=== PATIENT | male | born 1990 | race Caucasian/White ===

== ENCOUNTER 2023-04-01 21:06 | Emergency (ER) | payer MEDICAID ==
[~2023-04-01] VITALS: Ht 154.9 cm; Wt 67.1 kg
[2023-04-01] MEDS ORDERED: KETOROLAC TROMETHAMINE 15 MG/ML VIAL ONE (21:46)
[2023-04-01] MEDS ORDERED: KETO10TA2 PO (21:53)
[2023-04-01] MEDS ORDERED: KETOROLAC TROMETHAMINE INJ 60 MG/2 ML VIAL IM ONE ×2 (22:00→22:12)
[2023-04-01 23:38] VITALS: BP 121/78; TEMP 97.9; O2SAT 98
== END 2023-04-01 23:41 | disposition home or self-care (01) ==
LOC: ER 21:07
DX: S29.011A Strain of muscle and tendon of front wall of thorax, initial encounter (principal); F17.210 Nicotine dependence, cigarettes, uncomplicated; Z79.899 Other long term (current) drug therapy; X58.XXXA Exposure to other specified factors, initial encounter; Y93.89 Activity, other specified; Y92.89 Other specified places as the place of occurrence of the external cause; Y99.0 Civilian activity done for income or pay
CPT/HCPCS: 99283; 71045; 99406; 96372; 93005; J1885